=== PATIENT | female | born 1960 | race African-American/Black ===

== ENCOUNTER 2021-02-22 06:10 | Inpatient (IN) ==
[2021-02-22 07:25] LABS: Basophils % 0.7 % (0.0-0.8); Eosinophils # 0.1 10*3/uL (0.0-0.87); Eosinophils % 1.5 % (0.00-10.9); Hematocrit 38.5 VOL% (35.7-47.0); Hemoglobin 12.2 GM/DL (12.0-16.0); Immature Granulocytes % 0.2 %; Immature Granulocytes Absolute 0.01 #; Lymphocytes # 1.4 10*3/uL (1.4-4.0); Lymphocytes % 26.4 % (21.3-54.2); Mean Corpuscular HGB Conc 31.7 GM/DL (32-36); Mean Corpuscular Volume 93.7 FL (87-102); Mean Platelet Volume 10.2 FL (9.6-12.0); Neutrophils % 64.2 % (38.7-73.9); Platelet Count 278 T/CUMM (130-400); Red Blood Count 4.11 MC/CUMM (3.8-5.5); Red Cell Distribution Width 13.8 % (9.3-17.3); White Blood Count 5.5 T/CUMM (4-12)
[2021-02-22 08:11] LABS: Albumin 4.3 G/DL (3.4-5.0); Bilirubin,Total 0.5 MG/DL (0.2-1.0); Calcium 9.3 MG/DL (8.5-10.1); Osmolality,Calculated 284.4 MOS/KG (273-304); Potassium 3.8 MMOL/L (3.5-5.1); Total Protein 7.4 G/DL (6.4-8.2)
[2021-02-22 08:35] LABS: Bilirubin,Urine Negative (Negative); Blood, Urine Negative (Negative); Glucose,Urine (UA) Negative (Negative); Hyaline Casts,Urine 1 /LPF (0-3); Ketones,Urine 20 mg/dL (Negative); Nitrite,Urine Negative (Negative); Protein,Urine Negative; RBC,Urine 1 /HPF (0-4); Squamous Epithelial Cell,Urine Occasional /HPF (0-10); Urine Appearance CLEAR (Clear); Urine Color Straw (Yellow); Urine Specific Gravity 1.016 (1.001-1.035); Urine Urobilinogen < 2.0 EU/DL (0.2-1.0); WBC,Urine 3 /HPF (0-6)
[2021-02-22] MEDS ORDERED: hydrALAZINE 20 MG/1 ML VIAL IV PRN (08:45)
[2021-02-22] MEDS ORDERED: guaiFENesin/DM ER 600-30 MG TABLET PO PRN (08:45)
[2021-02-22] MEDS ORDERED: diphenhydrAMINE CAP 25 MG CAPSULE PO PRN (08:45)
[2021-02-22] MEDS ORDERED: GLUCAGON 1 MG VIAL IM PRN (08:45)
[2021-02-22] MEDS ORDERED: ZALEPLON 5 MG CAPSULE PO PRN (08:45)
[2021-02-22] MEDS ORDERED: ALUMINUM/MAGNES/SIMETH MAX STR 30 ML UDCUP PO PRN (08:45)
[2021-02-22] MEDS ORDERED: NICOTINE 21 MG/24 HR PATCH TRANSDERM PRN (08:45)
[2021-02-22] MEDS ORDERED: DEXTROSE 50% 25 GM/50 ML VIAL IV PRN (08:45)
[2021-02-22] MEDS ORDERED: MORPHINE 4 MG/1 ML VIAL IV PRN (08:45)
[2021-02-22] MEDS: ENOXAPARIN 40 MG/0.4 ML SYRINGE SUBCUT SCH (09:34)
[2021-02-22] MEDS: DEXT 5% NACL 0.9% KCL 40 MEQ 40 MEQ/1,000 ML BAG IV SCH (12:07)
[2021-02-22 21:14] LABS: Cancer Antigen 19-9 20855.28 U/ML (0-35); Carcinoembryonic Antigen 16.8 NG/ML (0.0-5.0)
[2021-02-23] MEDS: DEXT 5% NACL 0.9% KCL 40 MEQ 40 MEQ/1,000 ML BAG IV SCH ×2 (02:15→19:34)
[2021-02-23 05:54] LABS: Basophils # 0.1 10*3/uL (0.0-0.2); Basophils % 1.4 % (0.0-0.8); Eosinophils # 0.1 10*3/uL (0.0-0.87); Eosinophils % 1.9 % (0.00-10.9); Hematocrit 36.4 VOL% (35.7-47.0); Immature Granulocytes % 0.3 %; Immature Granulocytes Absolute 0.01 #; Lymphocytes # 1.6 10*3/uL (1.4-4.0); Mean Corpuscular Volume 89.7 FL (87-102); Mean Platelet Volume 10.4 FL (9.6-12.0); Monocytes % 11.4 % (1.7-12.7); Platelet Count 259 T/CUMM (130-400); Red Blood Count 4.06 MC/CUMM (3.8-5.5); Red Cell Distribution Width 13.8 % (9.3-17.3); White Blood Count 3.7 T/CUMM (4-12)
[2021-02-23 06:29] LABS: Albumin 3.8 G/DL (3.4-5.0); Bilirubin,Total 0.8 MG/DL (0.2-1.0); Osmolality,Calculated 279.4 MOS/KG (273-304); Potassium 3.8 MMOL/L (3.5-5.1); Total Protein 7.1 G/DL (6.4-8.2)
[2021-02-23] MEDS: LEVOTHYROXINE 88 MCG TABLET PO SCH (08:20)
[2021-02-23] MEDS: amLODIPine 5 MG TABLET PO SCH (08:20)
[2021-02-23] MEDS: ENOXAPARIN 40 MG/0.4 ML SYRINGE SUBCUT SCH (08:20)
[2021-02-23] MEDS ORDERED: ACETAMINOPHEN 500 MG TABLET PO PRN (11:11)
[2021-02-23] MEDS: KETOROLAC 15 MG/1 ML VIAL IV PRN ×2 (13:01→22:02)
[2021-02-24] MEDS: KETOROLAC 15 MG/1 ML VIAL IV PRN (04:08)
[2021-02-24 05:33] LABS: Basophils # 0.1 10*3/uL (0.0-0.2); Basophils % 1.3 % (0.0-0.8); Eosinophils # 0.1 10*3/uL (0.0-0.87); Eosinophils % 1.8 % (0.00-10.9); Hematocrit 36.4 VOL% (35.7-47.0); Hemoglobin 12.1 GM/DL (12.0-16.0); Immature Granulocytes % 0.3 %; Immature Granulocytes Absolute 0.01 #; Lymphocytes # 1.3 10*3/uL (1.4-4.0); Lymphocytes % 32.3 % (21.3-54.2); Mean Corpuscular HGB Conc 33.2 GM/DL (32-36); Mean Corpuscular Volume 90.1 FL (87-102); Mean Platelet Volume 10.4 FL (9.6-12.0); Monocytes % 10.3 % (1.7-12.7); Platelet Count 236 T/CUMM (130-400); Red Blood Count 4.04 MC/CUMM (3.8-5.5); Red Cell Distribution Width 13.8 % (9.3-17.3); White Blood Count 3.9 T/CUMM (4-12)
[2021-02-24] MEDS: DEXT 5% NACL 0.9% KCL 40 MEQ 40 MEQ/1,000 ML BAG IV SCH ×3 (05:39→15:38)
[2021-02-24 05:44] LABS: INR 1.1; PT Patient Result 11.4 SECS (9.8-11.9)
[2021-02-24] MEDS ORDERED: INDOMETHACIN SUPP 50 MG SUPP RECTAL ONE (08:00)
[2021-02-24] MEDS ORDERED: MIDAZOLAM 2 MG/2 ML VIAL ONE ×2 (11:03→12:01)
[2021-02-24] MEDS: LACTATED RINGERS 1,000 ML IV SCH ×2 (11:10→13:11)
[2021-02-24] MEDS ORDERED: FAMOTIDINE 20 MG/2 ML VIAL IV ONE (11:57)
[2021-02-24] MEDS ORDERED: ONDANSETRON 4 MG/2 ML VIAL ONE (11:58)
[2021-02-24] MEDS ORDERED: fentaNYL 100 MCG/2 ML VIAL ONE ×2 (11:59→12:18)
[2021-02-24] MEDS ORDERED: LIDOCAINE 2% 5 ML VIAL ONE (12:00)
[2021-02-24] MEDS ORDERED: ROCURONIUM 50 MG/5 ML VIAL IV ONE (12:00)
[2021-02-24] MEDS ORDERED: propofoL 200 MG/20 ML VIAL IV ONE (12:00)
[2021-02-24] MEDS ORDERED: SEVOFLURANE 1 UNIT/15 MINUTE INH ONE (12:19)
[2021-02-24] MEDS ORDERED: METOPROLOL TARTRATE 5 MG/5 ML VIAL IV ONE (12:21)
[2021-02-24] MEDS ORDERED: SUGAMMADEX 200 MG/2 ML VIAL IV ONE (12:41)
[2021-02-24] MEDS: ONDANSETRON 4 MG/2 ML VIAL IV PRN ×3 (14:10→19:47)
[2021-02-24] MEDS: LEVOTHYROXINE 88 MCG TABLET PO SCH (15:38)
[2021-02-24] MEDS: amLODIPine 5 MG TABLET PO SCH (15:38)
[2021-02-24] MEDS: HYDROmorphone 2 MG/1 ML VIAL IV PRN ×2 (17:17→22:30)
[2021-02-25] MEDS: DEXT 5% NACL 0.9% KCL 40 MEQ 40 MEQ/1,000 ML BAG IV SCH ×2 (01:02→17:15)
[2021-02-25] MEDS: PROMETHAZINE 25 MG TABLET PO PRN ×2 (02:36→08:36)
[2021-02-25] MEDS: KETOROLAC 15 MG/1 ML VIAL IV PRN ×4 (02:37→23:18)
[2021-02-25] MEDS: LEVOTHYROXINE 88 MCG TABLET PO SCH (08:36)
[2021-02-25] MEDS: amLODIPine 5 MG TABLET PO SCH (08:36)
[2021-02-25 10:23] LABS: Basophils % 0.2 % (0.0-0.8); Eosinophils % 0.4 % (0.00-10.9); Hematocrit 38.6 VOL% (35.7-47.0); Hemoglobin 12.4 GM/DL (12.0-16.0); Immature Granulocytes % 0.4 %; Immature Granulocytes Absolute 0.03 #; Lymphocytes # 1.2 10*3/uL (1.4-4.0); Lymphocytes % 15.4 % (21.3-54.2); Mean Corpuscular HGB Conc 32.1 GM/DL (32-36); Mean Corpuscular Volume 90.8 FL (87-102); Mean Platelet Volume 10.5 FL (9.6-12.0); Monocytes % 7.9 % (1.7-12.7); Neutrophils % 75.7 % (38.7-73.9); Platelet Count 290 T/CUMM (130-400); Red Blood Count 4.25 MC/CUMM (3.8-5.5); Red Cell Distribution Width 13.9 % (9.3-17.3); White Blood Count 8.1 T/CUMM (4-12)
[2021-02-25 10:52] LABS: Albumin 3.9 G/DL (3.4-5.0); Bilirubin,Total 0.5 MG/DL (0.2-1.0); Calcium 9.5 MG/DL (8.5-10.1); Osmolality,Calculated 278.5 MOS/KG (273-304); Potassium 3.6 MMOL/L (3.5-5.1); Total Protein 7.9 G/DL (6.4-8.2)
[2021-02-25] MEDS: ACETAMINOPHEN 325 MG TABLET PO PRN ×2 (13:37→19:56)
[2021-02-26] MEDS: DEXT 5% NACL 0.9% KCL 40 MEQ 40 MEQ/1,000 ML BAG IV SCH ×2 (03:17→08:38)
[2021-02-26] MEDS: ACETAMINOPHEN 325 MG TABLET PO PRN (03:21)
[2021-02-26 04:58] LABS: Basophils % 0.5 % (0.0-0.8); Eosinophils # 0.1 10*3/uL (0.0-0.87); Hematocrit 36.1 VOL% (35.7-47.0); Hemoglobin 11.4 GM/DL (12.0-16.0); Immature Granulocytes % 0.5 %; Immature Granulocytes Absolute 0.03 #; Lymphocytes # 1.3 10*3/uL (1.4-4.0); Lymphocytes % 21.4 % (21.3-54.2); Mean Corpuscular HGB Conc 31.6 GM/DL (32-36); Mean Corpuscular Volume 92.3 FL (87-102); Mean Platelet Volume 10.8 FL (9.6-12.0); Neutrophils % 66.6 % (38.7-73.9); Platelet Count 257 T/CUMM (130-400); Red Blood Count 3.91 MC/CUMM (3.8-5.5); White Blood Count 6.1 T/CUMM (4-12)
[2021-02-26 05:28] LABS: Albumin 3.4 G/DL (3.4-5.0); Bilirubin,Total 0.7 MG/DL (0.2-1.0); Calcium 9.1 MG/DL (8.5-10.1); Osmolality,Calculated 283.1 MOS/KG (273-304); Potassium 3.8 MMOL/L (3.5-5.1); Total Protein 6.7 G/DL (6.4-8.2)
[2021-02-26] MEDS: LEVOTHYROXINE 88 MCG TABLET PO SCH (07:14)
[2021-02-26] MEDS: amLODIPine 5 MG TABLET PO SCH (08:09)
[2021-02-26] MEDS: KETOROLAC 15 MG/1 ML VIAL IV PRN (08:19)
[2021-02-26 08:43] VITALS: BP 161/92
== END 2021-02-26 11:12 | disposition home or self-care (01) | DRG 435 ==
LOC: N.ED 06:10 → N.EDINP 08:45 → SUATTDRO 08:45 → N.4E 09:32
PROVIDERS: ADMIT Internal Medicine; ATTEND Internal Medicine